=== PATIENT | female | born 1990 | race Caucasian/White ===

== ENCOUNTER 2020-04-20 20:59 | Observation (INO) ==
[2020-04-20] MEDS ORDERED: HYDROmorphone 1 MG/ML SYRINGE IV ONE (21:26)
[2020-04-20] MEDS ORDERED: ONDANSETRON 4 MG/2 ML VIAL IV ONE (21:26)
[2020-04-20] MEDS ORDERED: 0.9 % SODIUM CHLORIDE 1,000 ML IV ONE ×2 (21:26→22:44)
--- NOTE | 2020-04-20 21:47 | Emergency Department Note ---
Abdominal Pain HPI General Chief Complaint: Abdominal Pain Stated Complaint: abd pain Time Seen by Provider: 04/20/20 21:12 Source: patient Mode of arrival: ambulatory Limitations: no limitations History of Present Illness HPI Narrative: Narrative: 29-year-old female presents with sudden onset of right lower quadrant abdominal pain 1 hour ago. States pain is severe, 10 out of 10, worsened when she was in labor. Radiates to right flank area. She did notice some dysuria and frequency last night and thought maybe she was starting to get a UTI. States she did take some Azo [id number]. She was fine until an hour prior to arrival when this pain started out of nowhere. Cannot get comfortable no matter what she does. Has chills and nausea. No nausea vomiting or diarrhea. Does not believe she is had a fever. No cough or cold symptoms. No home treatments other than the Azo Related Data Home Medications Medication Instructions Recorded Confirmed venlafaxine 150 mg 150 mg PO QAM 02/15/20 02/15/20 capsule,extended release 24 hr Allergies Allergy/AdvReac Type Severity Reaction Status Date / Time No Known Drug Allergies Allergy Unverified 02/15/20 17:11 Review of Systems ROS ROS Narrative: Narrative: All systems ED: reviewed and negative except as stated. [facility] Narrative Patient History Narrative: Narrative: Medical/Surgical/Family History All Active Problems (Updated 04/20/20 @ 22:10 by MOSHE Alfonso) Abdominal pain (Acute) URI (upper respiratory infection) (Acute) Social History Smoking Status: Never smoker Alcohol Intake Frequency: does not drink Substance Use: does not use Exam Narrative Narrative: Narrative: General Limitations: no limitations General appearance: Present alert Head Head: Present atraumatic and normocephalic Eye Eye: Present normal appearance; Absent conjunctival injection ENT ENT: Present mucous membranes moist Chest Chest: Present symmetric chest wall rise Respiratory Respiratory: Present normal lung sounds bilaterally; Absent respiratory distress, rales/crackles, wheezes, stridor and accessory muscle use Cardiovascular Cardiovascular: Present regular rate and normal heart sounds Adbominal Abdominal: Present soft, tenderness (Positive right lower quadrant and right flank) and normal bowel sounds; Absent distention and guarding Extremities Extremities: Present normal capillary refill Back Back: Present CVA tenderness (R); Absent CVA tenderness (L) Neurological Neurological: Present alert and oriented X3 Psychiatric Psychiatric: Present anxious and tearful Skin Skin: Present warm (WNL), dry, intact and normal color Course Course Course Narrative: Patient medicated with Dilaudid and Zofran for pain and nausea and given a liter of fluid. CT is pending. Report given to supervising ER physician Dr. Henry to assume care due to shift change. Vital Signs Vital signs: Vital Signs Temperature 99.2 F H 04/20/20 21:00 Pulse Rate 100 H 04/20/20 21:00 Respiratory Rate 18 04/20/20 21:00 Blood Pressure 160/100 04/20/20 21:00 Pulse Oximetry (%) 95 04/20/20 21:00 Temperature 99.2 F H 04/20/20 21:00 Pulse Rate 85 04/20/20 21:31 Respiratory Rate 18 04/20/20 21:00 Blood Pressure 131/84 04/20/20 21:31 Pulse Oximetry (%) 95 04/20/20 21:31 MDM MDM Narrative Medical decision making narrative: Narrative: Lab Data Result diagrams: 04/20/20 21:19 04/20/20 21:19 Labs: Lab Results 04/20/20 Range/Units 21:19 WBC 7.5 (4.5-11.0) K/mcL RBC 4.49 (4.00-5.20) M/mcL Hgb 13.0 (12.0-15.0) g/dL Hct 40.2 (36.0-48.0) % MCV 89.5 (80.0-100.0) fL MCH 29.0 (26.0-34.0) pg MCHC 32.3 (31.0-36.0) g/dL RDW 13.2 (11.5-14.5) % Plt Count 369 (140-440) K/mcL MPV 10.4 (7.4-10.4) fL Neut % (Auto) 34.3 L (38.0-78.0) % Lymph % (Auto) 56.6 H (15.0-49.0) % [place] % (Auto) 8.0 (1.0-12.0) % Eos % (Auto) 0.7 (0.0-7.0) % Baso % (Auto) 0.4 (0.0-2.0) % Lymph # (Auto) 4.23 (1.50-4.80) K/mcL [place] # (Auto) 0.60 (0.10-0.90) K/mcL Eos # (Auto) 0.05 (0.00-0.70) K/mcL Baso # (Auto) 0.03 (0.00-0.20) K/mcL Absolute Neutrophils 2.57 (1.80-8.00) K/mcL Discharge Plan Patient/Caregiver Discharge Instructions Pt seen by HEAD SAWYER/PA only: No Clinical Impression: Abdominal pain Patient Disposition: Still a Patient Condition: Good Follow up with: Shy Johnston ARNP [Primary Care Provider] - Prescriptions: No Action venlafaxine 150 mg capsule,extended release 24hr 150 mg PO QAM RF: 0
[2020-04-20 22:06] LABS: Basophils # (Auto) 0.03 K/mcL (0.00-0.20); Basophils % (Auto) 0.4 % (0.0-2.0); Eosinophils # (Auto) 0.05 K/mcL (0.00-0.70); Eosinophils % (Auto) 0.7 % (0.0-7.0); Hematocrit 40.2 % (36.0-48.0); Lymphocytes # (Auto) 4.23 K/mcL (1.50-4.80); Lymphocytes % (Auto) 56.6 % (15.0-49.0); Mean Cell Volume 89.5 fL (80.0-100.0); Mean Corpuscular HGB Conc 32.3 g/dL (31.0-36.0); Mean Platelet Volume 10.4 fL (7.4-10.4); Neutrophils % (Auto) 34.3 % (38.0-78.0); Platelet Count 369 K/mcL (140-440); RBC 4.49 M/mcL (4.00-5.20); Red Cell Distribution Width 13.2 % (11.5-14.5); WBC 7.5 K/mcL (4.5-11.0)
[2020-04-20 22:17] LABS: Appearance,Urine CLEAR (Clear); Bacteria,Urine MANY /hpf (0); Bilirubin,Urine Negative (Negative); Color,Urine RED; Culture Indicated,Urine Yes; Glucose,Urine (UA) 50 mg/dL (Negative); Ketones,Urine Negative (Negative); Leukocyte Esterase,Urine Negative /ug (Negative); Mucus,Urine MOD /hpf; Nitrate,Urine POS (Negative); Protein,Urine 100 mg/dL (Negative); Specific Gravity,Urine 1.019 (1.000-1.035); Urine RBC 46 /hpf (0-3); Urine Squamous Epithelial Cell 2 /hpf (0-4); Urine WBC 0 /hpf (0-4)
--- NOTE | 2020-04-20 22:17 | Emergency Department Note ---
Abdominal Pain HPI General Chief Complaint: Abdominal Pain Stated Complaint: abd pain Time Seen by Provider: 04/20/20 21:12 Source: patient Mode of arrival: ambulatory Limitations: no limitations History of Present Illness HPI Narrative: Narrative: Related Data Home Medications Medication Instructions Recorded Confirmed venlafaxine 150 mg 150 mg PO QAM 02/15/20 02/15/20 capsule,extended release 24 hr Allergies Allergy/AdvReac Type Severity Reaction Status Date / Time No Known Drug Allergies Allergy Unverified 02/15/20 17:11 Review of Systems ROS ROS Narrative: Narrative: PFSH Narrative Patient History Narrative: Narrative: Medical/Surgical/Family History All Active Problems (Updated 04/20/20 @ 22:49 by Kirby Henry MD) Abdominal pain (Acute) UTI (urinary tract infection) (Acute) Renal calculus, right (Acute) URI (upper respiratory infection) (Acute) Social History Smoking Status: Never smoker Alcohol Intake Frequency: does not drink Substance Use: does not use Exam Narrative Narrative: Narrative: General Limitations: no limitations Course Reevaluation(s) Reevaluation #1: The patient is inherited from the midlevel at shift change. CT and labs are pending. CT shows a 4 mm obstructing stone at the right UVJ with mild right-sided hydronephrosis and hydroureter. Patient is presently symptom- free. Time: 22:16 Reevaluation #2: I spoke to the urologist, Dr. Alvares. She recommended a hospitalist admission. She wanted me to start IV fluids and give a dose of Flomax and Rocephin. She indicated straining the urine and keeping the patient n.p.o. otherwise. She wanted a KUB to be able to track the stone. She i ndicated that if the stone had not passed come tomorrow, then an intervention may be warranted. Time: 22:43 Reevaluation #3: I spoke to the hospitalist, Dr. Portillo. He agreed to observe this patient. Time: 22:46 Vital Signs Vital signs: Vital Signs Temperature 99.2 F H 04/20/20 21:00 Pulse Rate 100 H 04/20/20 21:00 Respiratory Rate 18 04/20/20 21:00 Blood Pressure 160/100 04/20/20 21:00 Pulse Oximetry (%) 95 04/20/20 21:00 Temperature 99.2 F H 04/20/20 21:00 Pulse Rate 87 04/20/20 22:44 Respiratory Rate 18 04/20/20 21:00 Blood Pressure 117/80 04/20/20 22:31 Pulse Oximetry (%) 95 04/20/20 22:44 MDM MDM Narrative Medical decision making narrative: Narrative: Lab Data Result diagrams: 04/20/20 21:19 04/20/20 21:19 Labs: Lab Results 04/20/20 04/20/20 04/20/20 Range/Units 21:18 21:19 21:19 WBC 7.5 (4.5-11.0) K/mcL RBC 4.49 (4.00-5.20) M/mcL Hgb 13.0 (12.0-15.0) g/dL Hct 40.2 (36.0-48.0) % MCV 89.5 (80.0-100.0) fL MCH 29.0 (26.0-34.0) pg MCHC 32.3 (31.0-36.0) g/dL RDW 13.2 (11.5-14.5) % Plt Count 369 (140-440) K/mcL MPV 10.4 (7.4-10.4) fL Neut % (Auto) 34.3 L (38.0-78.0) % Lymph % (Auto) 56.6 H (15.0-49.0) % [place] % (Auto) 8.0 (1.0-12.0) % Eos % (Auto) 0.7 (0.0-7.0) % Baso % (Auto) 0.4 (0.0-2.0) % Lymph # (Auto) 4.23 (1.50-4.80) K/mcL [place] # (Auto) 0.60 (0.10-0.90) K/mcL Eos # (Auto) 0.05 (0.00-0.70) K/mcL Baso # (Auto) 0.03 (0.00-0.20) K/mcL Absolute Neutrophils 2.57 (1.80-8.00) K/mcL VBG Lactic Acid (0.5-2.0) mmol/L Sodium 134 (133-145) mmol/L Potassium 3.8 (3.3-5.1) mmol/L Chloride 99 (96-108) mmol/L Carbon Dioxide 19 L (22-30) mmol/L Anion Gap 16.0 (8.0-16.0) BUN 11 (6-20) mg/dL Creatinine 0.8 (0.6-1.1) mg/dL GFR Calculation 98 Glucose 114 H (70-105) mg/dL Calcium 9.0 (8.6-10.4) mg/dL Total Bilirubin < 0.2 (0.1-1.0) mg/dL AST 22 (<32) U/L ALT 16 (<40) U/L Alkaline Phosphatase 44 (39-117) U/L Total Protein 6.9 (5.9-8.4) gm/dL Albumin 4.0 (3.2-5.2) gm/dL Globulin 2.9 (2.2-3.7) gm/dL Albumin/Globulin Ratio 1.4 (1.0-2.3) Urine Color Red Urine Appearance Clear (Clear) Urine pH 5.0 (5.0-9.0) Ur Specific [place] 1.019 (1.000-1.035) Urine Protein 100 A (Negative) mg/dL Urine Glucose (UA) 50 A (Negative) mg/dL Urine Ketones Negative (Negative) mg/dL Urine Occult Blood 0.20 (Negative) mg/dL Urine Nitrate Pos A (Negative) Urine Bilirubin Negative (Negative) mg/dL Urine Urobilinogen 4.0 A mg/dL Ur Leukocyte Esterase Negative (Negative) /ug Urine RBC 46 H (0-3) /hpf Urine WBC 0 (0-4) /hpf Ur Squamous Epith Cells 2 (0-4) /hpf Urine Bacteria Many A (0) /hpf Urine Mucus Mod A (None) /hpf Ur Culture Indicated? Yes 04/20/20 Range/Units 21:29 WBC (4.5-11.0) K/mcL RBC (4.00-5.20) M/mcL Hgb (12.0-15.0) g/dL Hct (36.0-48.0) % MCV (80.0-100.0) fL MCH (26.0-34.0) pg MCHC (31.0-36.0) g/dL RDW (11.5-14.5) % Plt Count (140-440) K/mcL MPV (7.4-10.4) fL Neut % (Auto) (38.0-78.0) % Lymph % (Auto) (15.0-49.0) % [place] % (Auto) (1.0-12.0) % Eos % (Auto) (0.0-7.0) % Baso % (Auto) (0.0-2.0) % Lymph # (Auto) (1.50-4.80) K/mcL [place] # (Auto) (0.10-0.90) K/mcL Eos # (Auto) (0.00-0.70) K/mcL Baso # (Auto) (0.00-0.20) K/mcL Absolute Neutrophils (1.80-8.00) K/mcL VBG Lactic Acid 2.6 H (0.5-2.0) mmol/L Sodium (133-145) mmol/L Potassium (3.3-5.1) mmol/L Chloride (96-108) mmol/L Carbon Dioxide (22-30) mmol/L Anion Gap (8.0-16.0) BUN (6-20) mg/dL Creatinine (0.6-1.1) mg/dL GFR Calculation Glucose (70-105) mg/dL Calcium (8.6-10.4) mg/dL Total Bilirubin (0.1-1.0) mg/dL AST (<32) U/L ALT (<40) U/L Alkaline Phosphatase (39-117) U/L Total Protein (5.9-8.4) gm/dL Albumin (3.2-5.2) gm/dL Globulin (2.2-3.7) gm/dL Albumin/Globulin Ratio (1.0-2.3) Urine Color Urine Appearance (Clear) Urine pH (5.0-9.0) Ur Specific [place] (1.000-1.035) Urine Protein (Negative) mg/dL Urine Glucose (UA) (Negative) mg/dL Urine Ketones (Negative) mg/dL Urine Occult Blood (Negative) mg/dL Urine Nitrate (Negative) Urine Bilirubin (Negative) mg/dL Urine Urobilinogen mg/dL Ur Leukocyte Esterase (Negative) /ug Urine RBC (0-3) /hpf Urine WBC (0-4) /hpf Ur Squamous Epith Cells (0-4) /hpf Urine Bacteria (0) /hpf Urine Mucus (None) /hpf Ur Culture Indicated? Discharge Plan Patient/Caregiver Discharge Instructions Pt seen by INTERNET MARKETING EXECUTIVE/PA only: No Clinical Impression: Abdominal pain, UTI (urinary tract infection), Renal calculus, right Patient Disposition: Xfer As Outpt/Obs ([facility]) Condition: Good Follow up with: Shy Johnston ARNP [Primary Care Provider] - Prescriptions: No Action venlafaxine 150 mg capsule,extended release 24hr 150 mg PO QAM RF: 0
[2020-04-20 22:33] LABS: ALT/SGPT 16 U/L (<40); AST/SGOT 22 U/L (<32); Albumin/Globulin Ratio 1.4 (1.0-2.3); Alkaline Phosphatase 44 U/L (39-117); Bilirubin,Total < 0.2 mg/dL (0.1-1.0); Blood Urea Nitrogen 11 mg/dL (6-20); Carbon Dioxide 19 mmol/L (22-30); Chloride 99 mmol/L (96-108); Globulin 2.9 gm/dL (2.2-3.7); Glomerular Filtration Rate 98; Glucose 114 mg/dL (70-105)
[2020-04-20] MEDS ORDERED: cefTRIAXone 1 GM VIAL IV ONE (22:44)
[2020-04-20] MEDS ORDERED: TAMSULOSIN 0.4 MG CAPSULE PO ONE (22:44)
[2020-04-20] MEDS ORDERED: 0.9 % SODIUM CHLORIDE 1,000 ML IV SCH (22:45)
--- NOTE | 2020-04-20 22:51 | Internal Med History&Physical ---
HPI History of Present Illness Patient information: Note initiated : 04/20/20 at 10:51 pm Service Date, if different from initiated Date: [] Patient: Sunshine Medina a 29 y/o F admitted on for abd pain. Chief Complaint: History of present illness: Ms. Medina is a 29 year old F with a history of anxiety disorder and recurrent UTI who presents with rapid onset right lower quadrant abdominal pain that started this evening. Patient associated naus ea/dysuria and frequency. She was evaluated in the ER where CT was suggestive of right-sided hydronephrosis/4 mm calculi. Urology was consulted and requested admission for operative intervention. Hospital service was consulted after patient was started on crystalloid/analgesics/antiemetics/Rocephin and Flomax At the time of my evaluation patient is alert and oriented. She denies active distress. Her pain has resolved. She denies prior episode of dysuria/hematuria/recurrent renal stones. She does not have a family history of renal stones Review of systems 10 point review system was performed and is negative except as above PFSH PFSH All Active Problems (Updated 04/20/20 @ 22:49 by Kirby Henry MD) Abdominal pain (Acute) UTI (urinary tract infection) (Acute) Renal calculus, right (Acute) URI (upper respiratory infection) (Acute) Social History smoking status: Never smoker alcohol intake frequency: does not drink substance use type: does not use MEDS/ALLERGIES Home Medications and Allergies Home Medications Medication Instructions Recorded Confirmed Type venlafaxine 150 mg 150 mg PO QAM 02/15/20 04/21/20 History capsule,extended release 24 hr Gianvi (28) 1 tab PO QDAY 04/21/20 04/21/20 History lamotrigine 100 mci PO QDAY 04/21/20 04/21/20 History Allergies Allergy/AdvReac Type Severity Reaction Status Date / Time No Known Drug Allergies Allergy Unverified 02/15/20 17:11 EXAM Constitutional Vitals: Temp Pulse Resp BP Pulse Ox 99.2 F H 87 18 117/80 95 04/20/20 21:00 04/20/20 22:44 04/20/20 21:00 04/20/20 22:31 04/20/20 22:44 Minimal anxiety Head normocephalic Oral cavity moist No ear nose discharge Eye movement symmetrical Neck supple no lymphadenopathy S1-S2 regular Nonlabored breathing Nondistended nontender abdomen lower extremity no cyanosis clubbing or joint swelling Skin no suspicious lesion Psych anxious but alert cooperative Neuro normal higher function DATA Data Completed and Pending Labs: Labs from last 24 hours 04/20/20 04/20/20 04/20/20 21:29 21:19 21:19 WBC 7.5 RBC 4.49 Hgb 13.0 Hct 40.2 MCV 89.5 MCH 29.0 MCHC 32.3 RDW 13.2 Plt Count 369 MPV 10.4 Neut % (Auto) 34.3 L Lymph % (Auto) 56.6 H [place] % (Auto) 8.0 Eos % (Auto) 0.7 Baso % (Auto) 0.4 Lymph # (Auto) 4.23 [place] # (Auto) 0.60 Eos # (Auto) 0.05 Baso # (Auto) 0.03 Absolute Neutrophils 2.57 VBG Lactic Acid 2.6 H Sodium 134 Potassium 3.8 Chloride 99 Carbon Dioxide 19 L Anion Gap 16.0 BUN 11 Creatinine 0.8 GFR Calculation 98 Glucose 114 H Calcium 9.0 Total Bilirubin < 0.2 AST 22 ALT 16 Alkaline Phosphatase 44 Total Protein 6.9 Albumin 4.0 Globulin 2.9 Albumin/Globulin Ratio 1.4 Urine Color Urine Appearance Urine pH Ur Specific [place] Urine Protein Urine Glucose (UA) Urine Ketones Urine Occult Blood Urine Nitrate Urine Bilirubin Urine Urobilinogen Ur Leukocyte Esterase Urine RBC Urine WBC Ur Squamous Epith Cells Urine Bacteria Urine Mucus Ur Culture Indicated? 04/20/20 21:18 WBC RBC Hgb Hct MCV MCH MCHC RDW Plt Count MPV Neut % (Auto) Lymph % (Auto) [place] % (Auto) Eos % (Auto) Baso % (Auto) Lymph # (Auto) [place] # (Auto) Eos # (Auto) Baso # (Auto) Absolute Neutrophils VBG Lactic Acid Sodium Potassium Chloride Carbon Dioxide Anion Gap BUN Creatinine GFR Calculation Glucose Calcium Total Bilirubin AST ALT Alkaline Phosphatase Total Protein Albumin Globulin Albumin/Globulin Ratio Urine Color Red Urine Appearance Clear Urine pH 5.0 Ur Specific [place] 1.019 Urine Protein 100 A Urine Glucose (UA) 50 A Urine Ketones Negative Urine Occult Blood 0.20 Urine Nitrate Pos A Urine Bilirubin Negative Urine Urobilinogen 4.0 A Ur Leukocyte Esterase Negative Urine RBC 46 H Urine WBC 0 Ur Squamous Epith Cells 2 Urine Bacteria Many A Urine Mucus Mod A Ur Culture Indicated? Yes A/P Narrative A/P Narrative: * Obstruct uropathy with right hydronephrosis. 4 mm right UVJ stone. Urology on board. On Rocephin/Flomax/crystalloids. Keep n.p.o. * Abdominal pain continue supportive management analysis/antiemetics * Anxiety disorder continue venlafaxine Plan * Observation admit * Urology consult * Flomax/Rocephin/crystalloids * Pain management Time Spent With Patient Time: Total time spent is greater than 50% in coordination of care (as documented) at patient's floor/unit and/or counseling patient:
[2020-04-21] MEDS ORDERED: ONDANSETRON 4 MG/2 ML VIAL IV PRN (00:51)
[2020-04-21] MEDS ORDERED: HYDROmorphone 0.5 MG/0.5 ML SYRINGE IV PRN (00:51)
[2020-04-21] MEDS ORDERED: ONDANSETRON 4 MG ODT TABLET SL PRN (00:51)
[2020-04-21] MEDS ORDERED: POTASSIUM CHLORIDE 40 MEQ in DEXTROSE 5% IN WATER 500 ML IV PRN (00:51)
[2020-04-21] MEDS ORDERED: MAGNESIUM SULFATE 2 GM/50 ML BAG IV PRN (00:51)
[2020-04-21] MEDS ORDERED: ACETAMINOPHEN 650 MG/65 ML BAG IV PRN (00:51)
[2020-04-21] MEDS ORDERED: TAMSULOSIN 0.4 MG CAPSULE PO SCH (00:51)
[2020-04-21] MEDS ORDERED: 0.9 % SODIUM CHLORIDE 1,000 ML IV SCH (00:51)
[2020-04-21] MEDS ORDERED: MELATONIN 3 MG TABLET PO PRN (00:51)
[2020-04-21] MEDS ORDERED: BISACODYL 10 MG SUPP.RECT PR PRN (00:51)
[2020-04-21] MEDS ORDERED: POLYETHYLENE GLYCOL 3350 17 GM PACKET PO PRN (00:51)
[2020-04-21] MEDS ORDERED: KETOROLAC 15 MG/ML VIAL IV PRN (00:51)
[2020-04-21] MEDS: 0.9 % SODIUM CHLORIDE 1,000 ML IV SCH ×4 (00:55→15:51)
[2020-04-21] MEDS: cefTRIAXone 2 GM in DEXTROSE 5% IN WATER 50 ML IV SCH ×2 (00:58→01:30)
[2020-04-21] MEDS ORDERED: cefTRIAXone 1 GM VIAL ONE (01:20)
[2020-04-21] MEDS: 0.9 % SODIUM CHLORIDE 10 ML SYRINGE IV SCH ×2 (05:57→14:06)
[2020-04-21 06:08] LABS: Basophils # (Auto) 0.02 K/mcL (0.00-0.20); Basophils % (Auto) 0.5 % (0.0-2.0); Eosinophils # (Auto) 0.03 K/mcL (0.00-0.70); Eosinophils % (Auto) 0.7 % (0.0-7.0); Hematocrit 35.6 % (36.0-48.0); Hemoglobin 11.5 g/dL (12.0-15.0); Lymphocytes # (Auto) 1.94 K/mcL (1.50-4.80); Lymphocytes % (Auto) 45.8 % (15.0-49.0); Mean Cell Volume 88.8 fL (80.0-100.0); Mean Corpuscular HGB Conc 32.3 g/dL (31.0-36.0); Mean Platelet Volume 10.4 fL (7.4-10.4); Monocytes # (Auto) 0.32 K/mcL (0.10-0.90); Monocytes % (Auto) 7.5 % (1.0-12.0); Neutrophils % (Auto) 45.5 % (38.0-78.0); Platelet Count 259 K/mcL (140-440); RBC 4.01 M/mcL (4.00-5.20); Red Cell Distribution Width 13.1 % (11.5-14.5); WBC 4.2 K/mcL (4.5-11.0)
[2020-04-21 06:37] LABS: ALT/SGPT 12 U/L (<40); AST/SGOT 19 U/L (<32); Albumin 3.4 gm/dL (3.2-5.2); Albumin/Globulin Ratio 1.3 (1.0-2.3); Alkaline Phosphatase 39 U/L (39-117); Bilirubin,Direct < 0.2 mg/dL (<0.3); Bilirubin,Total 0.2 mg/dL (0.1-1.0); Blood Urea Nitrogen 9 mg/dL (6-20); Calcium 8.2 mg/dL (8.6-10.4); Carbon Dioxide 20 mmol/L (22-30); Chloride 107 mmol/L (96-108); Globulin 2.7 gm/dL (2.2-3.7); Glomerular Filtration Rate 98; Glucose 105 mg/dL (70-105); Lactate Dehydrogenase 149 U/L (135-225); Phosphorous 3.6 mg/dL (2.5-4.5); Triglycerides 261 mg/dL (<150); Uric Acid 5.5 mg/dL (2.5-8.0)
--- NOTE | 2020-04-21 06:59 | XRay Report ---
CLINICAL INFORMATION: right sided stone, monitor passage COMPARISON: Abdomen and pelvic CT 04/20/2020 FINDINGS: 3 mm calcification in the right true pelvis represents a known right UVJ stone abdominal CT one hour prior. It appears to be unchanged position. Two 3 mm phleboliths present in the left true pelvis. The stool gas pattern is unremarkable. There is no free air, soft tissue mass, organomegaly.. IMPRESSION: 3 mm right UVJ stone is unchanged in position from CT over one hour prior. Interpreted and Authenticated by: Jonathan Barrow 04/21/20
--- NOTE | 2020-04-21 07:33 | Cat Scan Report ---
CLINICAL INFORMATION: Right lower quadrant pain hematuria COMPARISON: None. TECHNIQUE: 0.625 mm helical slices were obtained from the mid heart through the subtrochanteric regions. Following reconstruction, 2.5 mm sagittal, coronal and axial reformatted images were processed and reviewed at bone and soft tissue windows.The exam was performed using radiation dose optimization techniques including, but not limited to, automated exposure control, adjustment of the mA and/or kV according to patient size and use of iterative reconstruction technique. FINDINGS: A 4 x 2 mm stone in the distal right ureter, at the UVJ, has resulted in mild right hydroureter/hydronephrosis. Both noncontrasted kidneys are normal and symmetric in size, position, configuration and attenuation: the left is 10.4 cm and the right is 10.6 cm in length. Urinary bladder is normal. Lung bases show no abnormality - no effusion. Visualized heart is normal. Abdominal images show the noncontrasted gallbladder and bile ducts, liver, both adrenal glands, spleen, pancreas and aorta to be normal in size, configuration and attenuation without focal lesion. There is no free air, free fluid or adenopathy. Pelvic images show retroflexed uterus which is normal in size: 8.8 x 3.7 cm. Both ovaries are normal. The stomach, small bowel, appendix and large bowel are normal. Bone windows show no osseous abnormalities IMPRESSION: 4 mm x 2 mm stone in the distal right ureter, at the UVJ, resulting in mild right hydroureter/hydronephrosis Interpreted and Authenticated by: Jonathan Barrow 04/21/20
[2020-04-21] MEDS ORDERED: 0.9 % SODIUM CHLORIDE 1,000 ML IV ONE (08:42)
[2020-04-21] MEDS ORDERED: MULTIVIT,THER IRON,CA,FA & MIN 1 TABLET PO SCH (09:00)
[2020-04-21] MEDS: ACETAMINOPHEN 325 MG TABLET PO PRN ×2 (10:25→14:26)
[2020-04-21] MEDS ORDERED: lamoTRIgine 100 MG TABLET PO SCH (15:15)
[2020-04-21] MEDS ORDERED: VENLAFAXINE 150 MG CAP.XL.24H PO SCH (15:16)
[2020-04-21] MEDS ORDERED: cefTRIAXone 2 GM in DEXTROSE 5% IN WATER 50 ML IV SCH (16:00)
--- NOTE | 2020-04-21 16:55 | Internal Medicine Consult Note ---
HPI Data of Consult Consult date: 04/21/20 Primary Care Provider: Shy Johnston Consult Narrative History of present illness: 29 y.o. female with onset flank pain and mailase who presented the ER. Pain resolved in ER but UA positive for possible infection(voided not cath specimen) , normal WBC> CT demonstrated 3 mm UVJ stone. D/W Er last night option for her to go home on flomax and antibiotics vs admit, trial passage with support over night and consideration intervention with surgery if needed. Patient preferred to be admitted. She has done well overnight and today. Pain well controlled. No fevers, no chills, she is NPO but hungry with no nausea or emesis. KUB last night demonstrated stone easily viable. KUB today demonstrated UVJ stone is still present. She currently fee4ls well. She prefers to go home with trial passage and outpatient urology follow up. No previous h/o renal stones, no hematuria, no dysuria. cc:: CC: Farhat Chavez Constitutional Constitutional: Absent fatigue, fever(s), lethargy, malaise, night sweats and weakness EENT Eyes: Absent dry eye, irritation and loss of vision Cardiovascular Cardiovascular: Absent chest pain with activity, diaphoresis and dyspnea Respiratory Respiratory: Absent cough, dyspnea and wheezing Gastrointestinal Gastrointestinal: Present as per HPI Genitourinary Genitourinary: Present as per HPI Musculoskeletal Musculoskeletal: Absent muscle weakness, numbness and tingling Integumentary Integumentary: Absent pruritus, swelling and jaundice Neurological Neurological: Absent loss of vision, tingling and weakness Psychiatric Psychiatric: Absent anxiety, change in appetite and confusion Endocrine Endocrine: Absent polydipsia, polyphagia and polyuria Hematologic/Lymphatic Hematologic/Lymphatic: Absent easy bleeding, easy bruising and lymphadenopathy Allergic/Immunologic Allergic/Immunologic: Absent itchy eyes, wheezing and lip swelling PFSH PFSH All Active Problems (Updated 04/20/20 @ 22:49 by Kirby Henry MD) Abdominal pain (Acute) UTI (urinary tract infection) (Acute) Renal calculus, right (Acute) URI (upper respiratory infection) (Acute) Social History smoking status: Never smoker alcohol intake frequency: does not drink substance use type: does not use MEDS/ALLERGIES Home Medications and Allergies Home Medications Medication Instructions Recorded Confirmed Type venlafaxine 150 mg 150 mg PO QAM 02/15/20 04/21/20 History capsule,extended release 24 hr Gianvi (28) 1 tab PO QDAY 04/21/20 04/21/20 History cephalexin [Keflex] 500 mg PO Q8H #15 cap 04/21/20 Rx lamotrigine 100 mg PO QDAY 04/21/20 04/21/20 History tamsulosin 0.4 mg PO HS #15 cap 04/21/20 Rx Allergies Allergy/AdvReac Type Severity Reaction Status Date / Time No Known Drug Allergies Allergy Unverified 02/15/20 17:11 EXAM Constitutional Vitals: Temp Pulse Resp BP Pulse Ox 98.5 F 71 18 129/61 99 04/21/20 15:53 04/21/20 15:53 04/21/20 15:53 04/21/20 15:53 04/21/20 15:53 General appearance: cooperative; no disheveled and no no acute distress Head Head exam: Absent atraumatic, normal inspection and normocephalic Eye Eye exam: Present EOMI; Absent periorbital swelling and scleral icterus Respiratory Respiratory exam: Absent respiratory distress, stridor and wheezes Cardiovascular Cardiovascular exam: Present RRR Psychiatric Psychiatric exam: Present normal affect and normal mood; Absent anxious DATA Data Completed and Pending Labs: Labs from last 24 hours 04/21/20 04/21/20 04/20/20 04:54 04:54 21:29 WBC 4.2 L RBC 4.01 Hgb 11.5 L Hct 35.6 L MCV 88.8 MCH 28.7 MCHC 32.3 RDW 13.1 Plt Count 259 MPV 10.4 Neut % (Auto) 45.5 Lymph % (Auto) 45.8 [place] % (Auto) 7.5 Eos % (Auto) 0.7 Baso % (Auto) 0.5 Lymph # (Auto) 1.94 [place] # (Auto) 0.32 Eos # (Auto) 0.03 Baso # (Auto) 0.02 Absolute Neutrophils 1.93 VBG Lactic Acid 2.6 H Sodium 136 Potassium 3.9 Chloride 107 Carbon Dioxide 20 L Anion Gap 9.0 BUN 9 Creatinine 0.8 GFR Calculation 98 Glucose 105 Uric Acid 5.5 Calcium 8.2 L Phosphorus 3.6 Magnesium 2.1 Total Bilirubin 0.2 Direct Bilirubin < 0.2 GGT 20 AST 19 ALT 12 Alkaline Phosphatase 39 Lactate Dehydrogenase 149 Total Protein 6.1 Albumin 3.4 Globulin 2.7 Albumin/Globulin Ratio 1.3 Triglycerides 261 H Urine Color Urine Appearance Urine pH Ur Specific [place] Urine Protein Urine Glucose (UA) Urine Ketones Urine Occult Blood Urine Nitrate Urine Bilirubin Urine Urobilinogen Ur Leukocyte Esterase Urine RBC Urine WBC Ur Squamous Epith Cells Urine Bacteria Urine Mucus Ur Culture Indicated? 04/20/20 04/20/20 04/20/20 21:19 21:19 21:18 WBC 7.5 RBC 4.49 Hgb 13.0 Hct 40.2 MCV 89.5 MCH 29.0 MCHC 32.3 RDW 13.2 Plt Count 369 MPV 10.4 Neut % (Auto) 34.3 L Lymph % (Auto) 56.6 H [place] % (Auto) 8.0 Eos % (Auto) 0.7 Baso % (Auto) 0.4 Lymph # (Auto) 4.23 [place] # (Auto) 0.60 Eos # (Auto) 0.05 Baso # (Auto) 0.03 Absolute Neutrophils 2.57 VBG Lactic Acid Sodium 134 Potassium 3.8 Chloride 99 Carbon Dioxide 19 L Anion Gap 16.0 BUN 11 Creatinine 0.8 GFR Calculation 98 Glucose 114 H Uric Acid Calcium 9.0 Phosphorus Magnesium Total Bilirubin < 0.2 Direct Bilirubin GGT AST 22 ALT 16 Alkaline Phosphatase 44 Lactate Dehydrogenase Total Protein 6.9 Albumin 4.0 Globulin 2.9 Albumin/Globulin Ratio 1.4 Triglycerides Urine Color Red Urine Appearance Clear Urine pH 5.0 Ur Specific [place] 1.019 Urine Protein 100 A Urine Glucose (UA) 50 A Urine Ketones Negative Urine Occult Blood 0.20 Urine Nitrate Pos A Urine Bilirubin Negative Urine Urobilinogen 4.0 A Ur Leukocyte Esterase Negative Urine RBC 46 H Urine WBC 0 Ur Squamous Epith Cells 2 Urine Bacteria Many A Urine Mucus Mod A Ur Culture Indicated? Yes A/P Narrative A/P Narrative: 29 y.o. female with RIGHT 4 mm UVJ stone easily seen on KUB admitted for pain control and trial passage who is doing well -stone has not passed, but she is asymptomatic -option of surgery (ureteroscopy, laser lithotripsy and possible stent) vs trial of passage at home with flomax and short course keflex gone over -she prefers continued trial of passage at home and will set up d/c -she will need to follow up with Dr. Romero in [facility] as there is only intermittent urology locally for the short term -any sings infection (fevers, chills, confusion, malaise or any worsening of condition) she knows to come back to the ER -since stone is readily visible on KUB, will be easy to monitor for trial of passage Time Spent With Patient Time: Total time spent is greater than 50% in coordination of care (as documented) at patient's floor/unit and/or counseling patient:
--- NOTE | 2020-04-21 16:57 | Discharge Summary ---
Discharge Provider Provider Patient information: Note initiated : 04/21/20 at 4:55 pm Service Date, if different from initiated Date: [] Patient: Sunshine Medina a 29 y/o F admitted on 04/21/20 for abd pain. Discharge diagnosis * Obstructive uropathy with right hydronephrosis. Urology recommends discharging with outpatient follow-up with Dr. Romero at [facility]. Continue antibiotic for additional 5 days along with Flomax edges Brief hospital course History of present illness: Ms. Medina is a 29 year old F with a history of anxiety disorder and recurrent UTI who presents with rapid onset right lower quadrant abdominal pain that started this evening. Patient associated nausea/dysuria and frequency. She was evaluated in the ER where CT was suggestive of right-sided hydronephrosis/4 mm calculi. Urology was consulted and requested admission for operative intervention. Hospital service was consulted after patient was started on crystalloid/analgesics/antiemetics/Rocephin and Flomax At the time of my evaluation patient is alert and oriented. She denies active distress. Her pain has resolved. She denies prior episode of dysuria/hematuria/recurrent renal stones. She does not have a family history of renal stones 04/21-patient doing a lot better. Urology recommends discharging on 5 days of Keflex/Flomax 0.4 daily until follow-up with urology at [facility] Dr. Romero. Patient is currently pain-free. Date of admission: 04/21/20 00:43 Discharge date: 04/21/20 Primary care physician: Shy Johnston Consults: 04/21/20 13:47 Consult to Physician [CONS] Routine Comment: Consulting Provider: Amanuel Alvares Reason For Exam: Physician to Consult Discharge Meds Discharge Medications Home Medications venlafaxine 150 mg capsule,extended release 24 hr 150 mg PO QAM 02/15/20 [History Confirmed 04/21/20 Last Taken 04/20/20 09:00] Gianvi (28) 1 tab PO QDAY 04/21/20 [History Confirmed 04/21/20 Last Taken 04/20/20 09:00] cephalexin [Keflex] 500 mg PO Q8H #15 cap 04/21/20 [Rx Last Taken Unknown] lamotrigine 100 mg PO QDAY 04/21/20 [History Confirmed 04/21/20 Last Taken 04/20/20 09:00] tamsulosin 0.4 mg PO HS #15 cap 04/21/20 [Rx Last Taken Unknown] COURSE Hospital Course Hospital course: . Discharge diagnosis: Obstructive uropathy Time Spent with Patient Time attestation: Total time spent providing and/or coordinating discharge services: EXAM Constitutional Vitals: Temp Pulse Resp BP Pulse Ox 98.5 F 71 18 129/61 99 04/21/20 15:53 04/21/20 15:53 04/21/20 15:53 04/21/20 15:53 04/21/20 15:53 Discharge Data Data Completed and Pending Labs on day of discharge: Labs from last 24 hours 04/21/20 04/21/20 04/20/20 04:54 04:54 21:29 WBC 4.2 L RBC 4.01 Hgb 11.5 L Hct 35.6 L MCV 88.8 MCH 28.7 MCHC 32.3 RDW 13.1 Plt Count 259 MPV 10.4 Neut % (Auto) 45.5 Lymph % (Auto) 45.8 [place] % (Auto) 7.5 Eos % (Auto) 0.7 Baso % (Auto) 0.5 Lymph # (Auto) 1.94 [place] # (Auto) 0.32 Eos # (Auto) 0.03 Baso # (Auto) 0.02 Absolute Neutrophils 1.93 VBG Lactic Acid 2.6 H Sodium 136 Potassium 3.9 Chloride 107 Carbon Dioxide 20 L Anion Gap 9.0 BUN 9 Creatinine 0.8 GFR Calculation 98 Glucose 105 Uric Acid 5.5 Calcium 8.2 L Phosphorus 3.6 Magnesium 2.1 Total Bilirubin 0.2 Direct Bilirubin < 0.2 GGT 20 AST 19 ALT 12 Alkaline Phosphatase 39 Lactate Dehydrogenase 149 Total Protein 6.1 Albumin 3.4 Globulin 2.7 Albumin/Globulin Ratio 1.3 Triglycerides 261 H Urine Color Urine Appearance Urine pH Ur Specific [place] Urine Protein Urine Glucose (UA) Urine Ketones Urine Occult Blood Urine Nitrate Urine Bilirubin Urine Urobilinogen Ur Leukocyte Esterase Urine RBC Urine WBC Ur Squamous Epith Cells Urine Bacteria Urine Mucus Ur Culture Indicated? 04/20/20 04/20/20 04/20/20 21:19 21:19 21:18 WBC 7.5 RBC 4.49 Hgb 13.0 Hct 40.2 MCV 89.5 MCH 29.0 MCHC 32.3 RDW 13.2 Plt Count 369 MPV 10.4 Neut % (Auto) 34.3 L Lymph % (Auto) 56.6 H [place] % (Auto) 8.0 Eos % (Auto) 0.7 Baso % (Auto) 0.4 Lymph # (Auto) 4.23 [place] # (Auto) 0.60 Eos # (Auto) 0.05 Baso # (Auto) 0.03 Absolute Neutrophils 2.57 VBG Lactic Acid Sodium 134 Potassium 3.8 Chloride 99 Carbon Dioxide 19 L Anion Gap 16.0 BUN 11 Creatinine 0.8 GFR Calculation 98 Glucose 114 H Uric Acid Calcium 9.0 Phosphorus Magnesium Total Bilirubin < 0.2 Direct Bilirubin GGT AST 22 ALT 16 Alkaline Phosphatase 44 Lactate Dehydrogenase Total Protein 6.9 Albumin 4.0 Globulin 2.9 Albumin/Globulin Ratio 1.4 Triglycerides Urine Color Red Urine Appearance Clear Urine pH 5.0 Ur Specific [place] 1.019 Urine Protein 100 A Urine Glucose (UA) 50 A Urine Ketones Negative Urine Occult Blood 0.20 Urine Nitrate Pos A Urine Bilirubin Negative Urine Urobilinogen 4.0 A Ur Leukocyte Esterase Negative Urine RBC 46 H Urine WBC 0 Ur Squamous Epith Cells 2 Urine Bacteria Many A Urine Mucus Mod A Ur Culture Indicated? Yes Discharge Plan Patient/Caregiver Discharge Instructions Activity: increase activity as tolerated Diet: Regular Diet Activity Restrictions/Additional Instructions: See Dr Reynaga for further care as if needed. Follow-up urology as outpatient as advised by Dr. Alvares Continue Keflex 500 3 times daily for 5 days continue Flomax at bedtime Prescriptions: New tamsulosin 0.4 mg Capsule 0.4 mg PO HS Qty: 15 RF: 0 cephalexin [Keflex] 500 mg capsule 500 mg PO Q8H Qty: 15 RF: 0 Continued venlafaxine 150 mg capsule,extended release 24hr 150 mg PO QAM RF: 0 Gianvi (28) 1 tab PO QDAY RF: 0 lamotrigine 100 mg Tablet 100 mg PO QDAY RF: 0 Follow Up Plan Follow up with: Shy Johnston ARNP [Primary Care Provider] - Patient Disposition: Home, Self-Care Prognosis: Good Rehab Potential: Fair I certify that the patient requires SNF services: No Overall status at discharge: patient is progressing back to baseline Discharge Orders: Discharge Order (Routine); Ordered 04/21/20 Ordered By: Farhat Chavez QUALITY VTE Deep Vein Thrombosis/Pulmonary Embolism Present on Admission: No
--- NOTE | 2020-04-21 17:00 | Discharge Plan ---
Discharge Plan Patient/Caregiver Discharge Instructions Activity: increase activity as tolerated Diet: Regular Diet Activity Restrictions/Additional Instructions: See Dr Reynaga for further care as if needed. Follow-up urology as outpatient to see DR ZAMBRANO in [place] Drink plenty of water Continue Keflex 500 3 times daily for 5 days continue Flomax at bedtime For pain control, you can use acetaminophen 500 mg taken at the same time as 400-800 Ibuprofen up to three times a day. take with food. If any worsening of condition or signs infection, come back to the emergency room Prescriptions: New tamsulosin 0.4 mg Capsule 0.4 mg PO HS Qty: 15 RF: 0 cephalexin [Keflex] 500 mg capsule 500 mg PO Q8H Qty: 15 RF: 0 Continued venlafaxine 150 mg capsule,extended release 24hr 150 mg PO QAM RF: 0 Gianvi (28) 1 tab PO QDAY RF: 0 lamotrigine 100 mg Tablet 100 mg PO QDAY RF: 0 Follow Up Plan Follow up with: Shy Johnston ARNP [Primary Care Provider] - Patient Disposition: Home, Self-Care Prognosis: Good Rehab Potential: Fair I certify that the patient requires SNF services: No Overall status at discharge: patient is progressing back to baseline Discharge Orders: Discharge Order (Routine); Ordered 04/21/20 Ordered By: Farhat Chavez
--- NOTE | 2020-04-21 17:15 | XRay Report ---
CLINICAL INFORMATION: 3 mm right UVJ stone - follow-up COMPARISON: 04/20/2020 FINDINGS: The 3 mm stone, in the distal right ureter, is unchanged in position. Left-sided phleboliths again noted. Stool gas pattern is normal. No free air, soft tissue mass or organomegaly. IMPRESSION: No change in 3 mm stone - distal right ureter Interpreted and Authenticated by: Jonathan Barrow 04/21/20
[2020-04-21] MEDS ORDERED: SENNOSIDES/DOCUSATE SODIUM 1 TAB TABLET PO SCH (21:00)
== END 2020-04-21 17:36 | disposition home or self-care (01) ==
LOC: MEDSUR 20:59 → ED 20:59 → MEDSUR 04-21 00:50
PROVIDERS: ADMIT Internal Medicine; ATTEND Internal Medicine